=== PATIENT | female | born 1940 | race Caucasian/White ===

== ENCOUNTER 2021-07-10 06:41 | Observation (INO) ==
[~2021-07-10 06:41] MED LIST: Buffered Lidocaine 1% SYRIN 1 ml INTRADERM ONE; HYDROcodone/ACETAMIN 5/325 mg TAB PO PRN; Lactated Ringers 1000 ml BAG 1,000 ML IV SCH; Metoclopramide 5 MG/ML VIAL (10 mg) IV PRN; Naloxone 0.4 mg VIAL 0.4 mg/ml 1 ml VIAL IV PRN; Ondansetron 4 mg VIAL 2 MG/ML 2 ml VIAL IV PRN; fentaNYL 100 mcg/2 ml 50 MCG/ML VIAL IV PRN
[2021-07-10] MEDS ORDERED: ceFAZolin 2 GM in NS PREMIX 2 GM/100 ML BAG IVPB ONE (07:16)
[2021-07-10] MEDS ORDERED: Propofol 0 MG/0 ML BTL ONE (07:16)
[2021-07-10] MEDS ORDERED: Phenylephrine IV 10 MG/ML 1 ml VIAL ONE (07:16)
[2021-07-10] MEDS ORDERED: BUPIVACAINE **LIPOSOME/PF 13.3 MG/ML (266MG/ 20ML) VIAL (RESTRICTED) INFIL ONE (08:00)
[2021-07-10] MEDS ORDERED: Tranexamic Acid 1,000 MG/10 ML SDV ONE (08:42)
[2021-07-10] MEDS ORDERED: Bupivacaine 0.25% SDV PF 10 ML VIAL INJ ONE (08:43)
[2021-07-10] MEDS ORDERED: Bupivacaine 0.25% w/EPI 10 ML SDV ONE (08:43)
[2021-07-10] MEDS ORDERED: fentaNYL 250 mcg/5 ml 50 MCG/ML 5 ml VIAL (250 MCG) ONE (11:29)
[2021-07-10] MEDS ORDERED: Midazolam 2 mg/2 ml VIAL 1 mg/ml 2 ml VIAL (2 mg) ONE ×2 (11:29→18:05)
[2021-07-10] MEDS ORDERED: Rocuronium 50 mg VIAL 10 mg/ml 5 ml VIAL (50 mg) ONE (11:29)
[2021-07-10] MEDS ORDERED: Propofol 10 MG/ML 20 ML BTL ONE ×3 (11:29→18:16)
[2021-07-10] MEDS ORDERED: Ondansetron 4 mg VIAL 2 MG/ML 2 ml VIAL ONE ×2 (11:30→18:47)
[2021-07-10] MEDS ORDERED: Dexamethasone IV 4 MG/ML VIAL 1 ml VIAL ONE ×3 (11:30→18:47)
[2021-07-10] MEDS ORDERED: ROPIVACAINE 5 MG/ML 30 ML BTL (0.5%) ONE (15:06)
[2021-07-10] MEDS ORDERED: EPHEDrine (Pressors) 50 MG/ML VIAL ONE (16:33)
[2021-07-10] MEDS ORDERED: Sterile Water for Inj 10 ML ONE (16:34)
[2021-07-10] MEDS ORDERED: ceFAZolin VIAL VIAL ONE (16:35)
[2021-07-10] MEDS ORDERED: Naloxone 0.4 mg VIAL 0.4 mg/ml 1 ml VIAL IV PRN (17:48)
[2021-07-10] MEDS ORDERED: fentaNYL 100 mcg/2 ml 50 MCG/ML VIAL IV PRN (17:48)
[2021-07-10] MEDS ORDERED: HYDROcodone/ACETAMIN 5/325 mg TAB PO PRN (17:48)
[2021-07-10] MEDS ORDERED: fentaNYL 100 mcg/2 ml 50 MCG/ML VIAL ONE (18:39)
[2021-07-10] MEDS ORDERED: Magnesium Hydroxide LIQ 30 ML UDC PO PRN (19:22)
[2021-07-10] MEDS ORDERED: Ondansetron ODT 4 mg TAB 4 MG TAB PO PRN (19:22)
[2021-07-10] MEDS ORDERED: Ondansetron 4 mg VIAL 2 MG/ML 2 ml VIAL IV PRN (19:22)
[2021-07-10] MEDS ORDERED: Morphine 2 MG/ML SYRINGE IV PRN (19:22)
[2021-07-10] MEDS ORDERED: Lactulose 30 ml UDC PO PRN (19:22)
[2021-07-10] MEDS ORDERED: Lactated Ringers 1000 ml BAG 1,000 ML IV SCH (20:00)
[2021-07-10] MEDS ORDERED: Insulin GLARGINE 100 un/ml 10 ml VIAL SUBCUT SCH (21:00)
[2021-07-10] MEDS: ceFAZolin 1 GM ADVAN 1 GM in NS 0.9% 50 ML 50 ML IVPB SCH (23:25)
[2021-07-10] MEDS: Magnesium Hydroxide LIQ 30 ML UDC PO SCH (23:28)
[2021-07-11 06:38] LABS: Hematocrit 33 % (35-47); Hemoglobin 11.7 g/dL (12.0-16.0); Mean Platelet Volume 9.1 fL (7.4-10.4); Platelet Count 163 10^3/uL (150-450)
[2021-07-11 06:56] LABS: Potassium 4.4 mmol/L (3.5-5.0)
[2021-07-11 06:57] LABS: Calcium 9.1 mg/dL (8.6-10.3); eGFR CKD-EPI 63.3 (>60)
[2021-07-11] MEDS: Magnesium Hydroxide LIQ 30 ML UDC PO SCH (08:50)
[2021-07-11] MEDS: ceFAZolin 1 GM ADVAN 1 GM in NS 0.9% 50 ML 50 ML IVPB SCH ×2 (08:50→15:00)
[2021-07-11] MEDS ORDERED: Vitamin THERAPEUTIC TAB PO SCH (09:00)
[2021-07-11] MEDS ORDERED: Lisinopril/HCTZ 20/12.5 TB(NF) PO SCH (09:00)
[2021-07-11] MEDS ORDERED: Cholecalciferol (VIT D3) 1,000 unit TAB PO SCH (09:00)
[2021-07-11 11:48] VITALS: BP 114/43
[2021-07-11] MEDS ORDERED: Insulin GLARGINE 100 un/ml 10 ml VIAL SUBCUT SCH (21:00)
== END 2021-07-11 15:35 | disposition home or self-care (01) ==
LOC: OR 06:41 → SSU 21:08 → INTOOBSV 21:08
PROVIDERS: ADMIT Orthopaedic Surgery Sports Medicine; ATTEND Orthopaedic Surgery Sports Medicine

== ENCOUNTER 2022-02-09 09:25 | Observation (INO) ==
[~2022-02-09 09:25] MED LIST changes: -HYDROcodone/ACETAMIN 5/325 mg TAB PO PRN; +HYDROmorphone 1 MG/1 ML SYRINGE IV PRN; -Metoclopramide 5 MG/ML VIAL (10 mg) IV PRN
[2022-02-09] MEDS ORDERED: ceFAZolin 2 GM PREMIX 2 GM/50 ML BAG ONE (09:52)
[2022-02-09] MEDS ORDERED: Bupivacaine 0.25% SDV 30 ML ONE (10:31)
[2022-02-09] MEDS ORDERED: Propofol 10 mg/ml 100 ML BTL 100 ML ONE (10:40)
[2022-02-09] MEDS ORDERED: Midazolam 2 mg/2 ml VIAL 1 mg/ml 2 ml VIAL (2 mg) ONE (10:45)
[2022-02-09] MEDS ORDERED: Ondansetron 4 mg VIAL 2 MG/ML 2 ml VIAL ONE (10:45)
[2022-02-09] MEDS ORDERED: fentaNYL 100 mcg/2 ml 50 MCG/ML VIAL ONE (10:45)
[2022-02-09] MEDS ORDERED: Dexamethasone IV 4 MG/ML VIAL 1 ml VIAL ONE (10:45)
[2022-02-09] MEDS ORDERED: BUPIVACAINE **LIPOSOME/PF 13.3 MG/ML (266MG/ 20ML) VIAL (RESTRICTED) INFIL ONE (12:00)
[2022-02-09] MEDS ORDERED: Magnesium Hydroxide LIQ 30 ML UDC PO PRN (13:56)
[2022-02-09] MEDS ORDERED: Morphine 2 MG/ML SYRINGE IV PRN (13:56)
[2022-02-09] MEDS ORDERED: Ondansetron 4 mg VIAL 2 MG/ML 2 ml VIAL IV PRN (13:56)
[2022-02-09] MEDS ORDERED: Lactulose 30 ml UDC PO PRN (13:56)
[2022-02-09] MEDS ORDERED: Ondansetron ODT 4 mg TAB 4 MG TAB PO PRN (13:56)
[2022-02-09] MEDS: Lactated Ringers 1000 ml BAG 1,000 ML IV SCH (15:30)
[2022-02-09] MEDS ORDERED: Dextrose 50% Syringe 50 ml 25 GM/50 ML SYRINGE IV PUSH PRN (19:52)
[2022-02-09] MEDS ORDERED: Insulin GLARGINE 100 un/ml 10 ml VIAL SUBCUT SCH ×2 (21:00)
[2022-02-09] MEDS: Magnesium Hydroxide LIQ 30 ML UDC PO SCH (21:50)
[2022-02-09] MEDS: ceFAZolin 1 GM ADVAN 1 GM in NS 0.9% 50 ML 50 ML IVPB SCH (22:07)
[2022-02-10] MEDS: ceFAZolin 1 GM ADVAN 1 GM in NS 0.9% 50 ML 50 ML IVPB SCH ×2 (03:15→11:29)
[2022-02-10] MEDS: Lactated Ringers 1000 ml BAG 1,000 ML IV SCH (03:15)
[2022-02-10 06:38] LABS: Hematocrit 29 % (35-47); Mean Platelet Volume 8.9 fL (7.4-10.4); Platelet Count 151 10^3/uL (150-450)
[2022-02-10 07:16] LABS: Calcium 8.8 mg/dL (8.6-10.3); eGFR CKD-EPI 40.3 (>60)
[2022-02-10 07:18] LABS: Potassium 5.3 mmol/L (3.5-5.0)
[2022-02-10] MEDS: Magnesium Hydroxide LIQ 30 ML UDC PO SCH (08:48)
[2022-02-10] MEDS ORDERED: Vitamin THERAPEUTIC TAB PO SCH (09:00)
[2022-02-10 10:57] VITALS: BP 106/57
== END 2022-02-10 14:49 | disposition home or self-care (01) ==
LOC: SSU 09:25 → OR 09:25
PROVIDERS: ADMIT Orthopaedic Surgery Sports Medicine; ATTEND Orthopaedic Surgery Sports Medicine